=== PATIENT | male | born 1985 | race African-American/Black ===

== ENCOUNTER 2019-05-01 16:28 | Emergency (ER) | payer MEDICAID ==
[~2019-05-01] VITALS: Ht 170.2 cm; Wt 60.3 kg
[2019-05-01 17:04] VITALS: Ht 170.2 cm; Wt 60.3 kg
[2019-05-01 20:37] VITALS: BP 118/99
== END 2019-05-01 20:37 | disposition home or self-care (01) ==
LOC: ED 16:28
DX: K62.89 Other specified diseases of anus and rectum (principal); K64.5 Perianal venous thrombosis

== ENCOUNTER 2019-06-10 12:52 | Emergency (ER) | payer SELFPAY ==
[~2019-06-10] VITALS: Ht 170.2 cm; Wt 60.8 kg
[2019-06-10 12:56] VITALS: Ht 170.2 cm; Wt 60.8 kg
[2019-06-10 13:20] VITALS: BP 127/82
== END 2019-06-10 13:20 | disposition home or self-care (01) ==
LOC: ED 12:52
DX: K64.4 Residual hemorrhoidal skin tags (principal)
CPT/HCPCS: J1885